=== PATIENT | female | born 1955 | race Caucasian/White ===

== ENCOUNTER 2025-02-08 05:35 | Day surgery (SDC) | payer MEDICARE, OTHER ==
[2025-01-26 11:27] VITALS: BP 131/75
[~2025-02-08] VITALS: Ht 167.6 cm; Wt 114.5 kg
[~2025-02-08 05:35] MED LIST: AMOXICILLIN500 MG PO; FUROSEMIDE20 MG PO; GABAPENTIN100 MG PO; HYDROCODON-ACE1 EA10 PO; IRBESARTAN-HCT1 EACH PO; LACTATED RINGER'S 1,000 ML IV SCH; NEURONTIN300 MG PO; POTASSIUM99 M3 PO; ROPINIROLE HCL2 MG PO
[2025-02-08 06:07] VITALS: BP 136/67
[2025-02-08] MEDS ORDERED: Ropivacaine HCl 20 MG/10 ML AMP ONE (06:07)
[2025-02-08] MEDS ORDERED: SODIUM CHLORIDE 0.9% 500 ML IV ONE (06:07)
[2025-02-08] MEDS ORDERED: MAGNESIUM250 M1 PO (06:09)
[2025-02-08] MEDS ORDERED: Ropivacaine HCl 0.5% 30 ML VIAL ONE ×2 (06:20→09:07)
[2025-02-08] MEDS ORDERED: SODIUM CHLORIDE 0.9% 40 ML IV ONE (06:20)
[2025-02-08] MEDS ORDERED: DEXAMETHASONE SOD PHOS 4 MG/ML VIAL ONE ×2 (06:21→06:22)
[2025-02-08] MEDS ORDERED: dexmedeTOMIDine HCl 200 MCG/2 ML VIAL ONE (06:21)
[2025-02-08] MEDS ORDERED: LIDOCAINE HCL 2% 5 ML SDV ONE (06:21)
[2025-02-08] MEDS ORDERED: propofoL 200 MG/20 ML VIAL ONE ×2 (06:21→07:08)
[2025-02-08] MEDS ORDERED: ondansetron HCL 4 MG/2 ML VIAL ONE (06:21)
[2025-02-08 06:22] LABS: BASOPHILS 0.3 % (0-2); BASOPHILS, ABSOLUTE 0 %; EOSINOPHILS, ABSOLUTE 0.2; HEMATOCRIT 40.6 % (35.0-50.0); LYMPHOCYTES 27.5 % (24-44); LYMPHOCYTES, ABSOLUTE 2.2; MCH 29.5 (27-36); MCHC 34.4 g/dl (30-36); MCV 85.8 fl (81-99); MONOCYTES 7.4 % (0-12); MONOCYTES, ABSOLUTE 0.6; NEUTROPHILS 61.8 % (39-80); NEUTROPHILS, ABSOLUTE 4.9; PLATELET COUNT 258 K/uL (140-440); RBC 4.73 M/ul (4.3-5.7); RDW 14.1 (10.5-15.0)
[2025-02-08 06:36] LABS: ANION GAP 9.6 (7-21); BUN/CREATININE RATIO 21.34 (6.0-28.6); CALCIUM 8.6 mg/dL (8.5-10.1); CREATININE, SERUM 0.89 mg/dL (0.55-1.02); POTASSIUM 3.6 mmol/L (3.5-5.1)
[2025-02-08] MEDS ORDERED: ROPIVACAINE IN 0.9% SOD CHL/PF 545 ML ELS.PMP.HR IRRIGATION SCH (07:00)
[2025-02-08] MEDS ORDERED: PANTOPRAZOLE SODIUM 40 MG TABEC PO SCH (07:00)
[2025-02-08] MEDS ORDERED: ondansetron HCL 4 MG TAB PO SCH (07:00)
[2025-02-08] MEDS ORDERED: IBLOOD GLUCOSE TEST STRIP 1 EA TEST VI PRN ×2 (07:00→08:15)
[2025-02-08] MEDS ORDERED: OXYCODONE HCL 5 MG TAB PO SCH (07:00)
[2025-02-08] MEDS ORDERED: INTRA-ARTICULAR ANALGESIC INJECTION XX SCH (07:00)
[2025-02-08] MEDS ORDERED: GABAPENTIN 600 MG TAB PO SCH (07:00)
[2025-02-08] MEDS ORDERED: LIDOCAINE HCL 1% 5 ML SDV INJ ONE (07:00)
[2025-02-08] MEDS ORDERED: CEFAZOLIN SODIUM 2 GM/20 ML SYR IV SCH ×2 (07:00→15:00)
[2025-02-08] MEDS ORDERED: TRANEXAMIC ACID IN NACL,ISO-OS 1,000 MG/100 ML PIGGYBACK IV SCH ×2 (07:00→10:00)
[2025-02-08] MEDS ORDERED: OXYCODONE HCL 5 MG TAB PO PRN (07:15)
--- NOTE | 2025-02-08 07:22 | NUR ---
VISITED DURING SPIRITUAL CARE ROUNDS. PT NOT AVAILABLE FOR VISIT. TALKED WITH IN ROOM. NO IMMEDIATE NEEDS. SHANK MAKER PROVIDED SUPPORTIVE PRESENCE, HOSPITALITY, PRAYER, FACILITATED INTERACTION WITH THERAPY ANIMAL. EXPRESSED GRATITUDE.
[2025-02-08] MEDS ORDERED: KETAMINE in NS 50 MG/5 ML SYR ONE (07:35)
[2025-02-08] MEDS ORDERED: ePHEDrine sulfate 50 MG/ML AMP ONE (07:49)
[2025-02-08] MEDS ORDERED: ondansetron HCL 4 MG/2 ML VIAL IV PRN (08:15)
[2025-02-08] MEDS ORDERED: fentaNYL citrate 50 MCG/ML SDV IV PRN (08:15)
[2025-02-08] MEDS ORDERED: NALOXONE HCL 0.4 MG SYR IV PRN (08:15)
[2025-02-08] MEDS ORDERED: NAPROXEN500 MG PO (08:31)
[2025-02-08] MEDS ORDERED: CEFUROXIME250 MG PO (08:31)
[2025-02-08] MEDS ORDERED: OXYCODONE HCL5 MG PO (08:31)
[2025-02-08] MEDS ORDERED: ASPIRIN325 MG PO (08:31)
[2025-02-08] MEDS ORDERED: GABAPENTIN100 MG PO (08:32)
[2025-02-08] MEDS ORDERED: ACETAMINOPHEN 1,000 MG/100 ML VIAL ONE (08:59)
[2025-02-08] MEDS ORDERED: ACETAMINOPHEN 1,000 MG/100 ML VIAL IV ONE (09:00)
[2025-02-08] MEDS ORDERED: NAPROXEN 500 MG TAB PO SCH (09:00)
[2025-02-08] MEDS ORDERED: KETOROLAC TROMETHAMINE 15 MG/ML VIAL IV ONE (09:00)
[2025-02-08] MEDS ORDERED: ASPIRIN 325 MG TAB PO SCH (09:00)
[2025-02-08] MEDS ORDERED: HYDROmorphone HCL 1 MG/ML SYR ONE (09:25)
[2025-02-08] MEDS ORDERED: HYDROmorphone HCL 1 MG/ML SYR IV ONE (09:45)
[2025-02-08] MEDS ORDERED: INTRA-ARTICULAR ANALGESIC INJECTION IAARTIC ONE (09:45)
[2025-02-08 09:52] VITALS: BP 135/68
--- NOTE | 2025-02-08 10:30 | NUR ---
0950-PT BACK TO ROOM FROM PACU ON RA. RECEIVED REPORT FROM ALANIS FLORES. PT IS AWAKE. RESP EVEN AND UNLABORED. RATES PAIN 5/10. DENEIS NAUSEA. CRYO CUFF IN PLACE AND RUNNING. ON-Q PUMP SET AT 4. PT TAKING SIPS OF WATER AND EATING PUDDING. NO OTHER NEEDS AT THIS TIME. CALL LIGHT WITHIN REACH. 1000-PAIN MEDICATION GIVEN PER EMAR. FAMILY AT BEDSIDE. CALL LIGTH WITHIN REACH.
[2025-02-08 11:01] VITALS: BP 111/49
[2025-02-08] MEDS ORDERED: GABAPENTIN 100 MG CAP PO SCH (12:00)
[2025-02-08 12:32] VITALS: BP 133/65
--- NOTE | 2025-02-08 12:40 | NUR ---
02/08/25 1240 Jessica Peralta 0846- PT PRESENTS TO PACU, SEMI KNIGHT POSITION, DROWSY AND GRIMACING. O2 AT 6L PER MASK, BREATHING EVEN AND NON LABORED. DRESSING TO RIGHT KNEE, CDI, CMS INTACT TOES FEEL A LITTLE NUMB. ON-Q PUMP AT 4 ML/HR. HEELS FLOATED OFF BED ON TOWEL ROLLS, ABD SOFT, NON DISTENDED. LR INFUSING TO LFA IV. PT C/O 8/10 PAIN. SPINAL LEVEL AROUND THE KNEE. ALL MONITORS IN PLACE. 0852- PT DENIES NAUSEA, MEDICATED WITH FENTANYL 25 MCG FOR 8/10 PAIN AT THIS TIME. 0857- PT DENIES ANY CHANGE IN PAIN, MEDICATED WITH 2ND DOSE OF FENTANYL. 0900- TORADOL GIVEN. XRAY AT BEDSIDE. 0905- TYLENOL IV STARTED AT THIS TIME. PT CONTINUES TO DENY CHANGES IN PAIN. REPORTS PRESSURE INSIDE THE KNEE LIKE SOMETHING IS SITTING ON IT. 0908- PT SATS 100%, MOVED TO ROOM AIR. 0910- MUNIRA WELLS AT BEDSIDE TO BOLUS ROPIVICAINE THROUGH ON-Q PUMP. 10 ML OF ROPIVICAINE 0.5% USED PER MUNIRA. PT REASSURED. CRYO CUFF PLACED TO RIGHT KNEE. 0930- PT REPORTS PAIN DOWN TO 7/10 BUT RPEORTS PAIN IS NOT TOLERABLE. WILL MEDICATED WITH DILAUDID 0.5 MG IV. PT SIPPING ON ICE WATER, TOLERATING WELL. 0945- PT REPORTS PAIN IS DOWN TO 5/10 AT THIS TIME AND MORE TOLERABLE. PLAN TO TAKE PT BACK TO DAY SURGERY TO ALLOW MEDICATION TO CONTINUE TO WORK FOR PAIN. 0950- PT TAKEN BACK TO DAY SURGERY VIA STRETCHER, A&O X4, SIPPING ON ICE WATER. DRESSING IN PLACE, CDI. REPORT TO ALISSA FLORES AT BEDSIDE, FAMILY IN ROOM, CARE OF PT TURNED OVER AT THIS TIME.
--- NOTE | 2025-02-08 12:52 | OR ---
[facility] [address] [place], [place] [address] Signed DATE OF OPERATION: 02/08/2025 SURGEON: Cesar Rudolph MD PREOPERATIVE DIAGNOSIS: Severe degenerative joint disease, right knee. POSTOPERATIVE DIAGNOSIS: Severe degenerative joint disease, right knee. PROCEDURE PERFORMED: Right total knee arthroplasty with Latrell. VERTICAL PUNCH OPERATOR: Rosio Judge PA-C. Rosio was present and critical for all portions of procedure. ANESTHESIA: Spinal. BLOOD LOSS: 175 mL. TOURNIQUET TIME: Zero. IMPLANTS: Shantel Triathlon size 4, 10 mm polyethylene and 32 mm patella. BRIEF HISTORY: Lynne is a 69-year-old female with progressive worsening of medial arthritis. Nonoperative treatment was unsuccessful and she wished to proceed with operative treatment. Risks, benefits, and alternatives were discussed and she was taken to the operating room. DESCRIPTION OF PROCEDURE: After adequate anesthesia, she was placed on the operating room table with a right hip bump. The leg was then prepped and draped in a standard sterile fashion. The knee was approached through a standard anterior midline incision, carried through the skin and subcutaneous tissue. Skin flaps were developed medially and laterally. A midvastus Electronically Signed By: CESAR RUDOLPH MD 02/08/25 1252 PATIENT NAME: LYNNE HENDRICKSON JEROME OPERATIVE REPORT DATE OF : 51 REPORT #: [id number] PHYSICIAN: CESAR RUDOLPH MD PCP: EVIN DE LA TORRE MD REPORT IS CONFIDENTIAL AND NOT TO BE RELEASED WITHOUT AUTHORIZATION [facility] [address] [place], [place] [address] Signed arthrotomy was performed and the infrapatellar fat pad was excised. The MCL was elevated as a sleeve around the posteromedial corner. Anterior horns of the menisci were transected as was the ACL. The navigation computer arrays were then placed in the distal femur and proximal tibia. The alignment of the leg was then registered followed by the fine anatomic points of the knee. The ligamentous poses were then taken. Slight adjustments were made primarily in moving the femur superiorly. Once this was completed, the robot was brought in. The four straight cuts and two angle cuts were made with care taken to protect the patellar tendon and MCL. The bony remnants were removed as were any remaining osteophytes. The posterior osteophytes were removed off the femur. One small loose body was removed. The remaining menisci were removed and the trials were positioned. Knee was taken from 0 to 120 degrees, which represented impingement. The knee was stable throughout and the patella tracked well. The patella was cut sized and drilled for 32 mm patella. The distal femur was drilled and the proximal tibia was finished using the keel punch followed by the four drill holes. The components were obtained. The tibia was impacted into position first followed by the polyethylene. The femur was then impacted until it was well seated. The knee was extended and loaded. The patella was clamped into position until again it was seated flushed. Again, range of motion was found to be good. Ligamentous stability was excellent and the patella tracked well. The knee was then washed out with one bottle of Surgiphor followed by normal saline. The periarticular soft tissues were injected with 100 mL of ropivacaine and Toradol mixture. The On-Q pain pump was percutaneously placed into the adductor canal from the suprapatellar pouch. The arthrotomy was then closed using a combination of #2 FiberWire and #2 Stratafix, subcutaneous tissue with 0 Stratafix and the skin with 3-0 Stratafix. The wound was sealed with LiquiBand and Steri-Strips and dressed with an Acticoat-7 dressing, ABD, and Jason wrap. She tolerated the procedure well. All sponge, needle, and instrument counts were correct. Cesar Rudolph MD BA/MODL /[id number] Electronically Signed By: CESAR RUDOLPH MD 02/08/25 1252 PATIENT NAME: LYNNE HENDRICKSON OPERATIVE REPORT DATE OF : 51 REPORT #: [id number] PHYSICIAN: CESAR RUDOLPH MD PCP: EVIN DE LA TORRE MD REPORT IS CONFIDENTIAL AND NOT TO BE RELEASED WITHOUT AUTHORIZATION [address] [place] [address] Signed Copies: ~ Electronically Signed By: CESAR RUDOLPH MD 02/08/25 1252 PATIENT NAME: LYNNE HENDRICKSON JEROME OPERATIVE REPORT DATE OF : 51 REPORT #: [id number] PHYSICIAN: CESAR RUDOLPH MD PCP: EVIN DE LA TORRE MD REPORT IS CONFIDENTIAL AND NOT TO BE RELEASED WITHOUT AUTHORIZATION
--- NOTE | 2025-02-08 15:01 | NUR ---
MELINDA 0907-PT BACK TO ROOM FOR PACU ON RA. RECEIVED REPORT FROM ALANIS FLORES. PT IS AWAKE. RESP EVEN AND UNLABORED. RATES PAIN 5/10. DENIES NAUSEA. CRYO CUFF IN PLACE AND RUNNING. ON-Q PUMP SET AT 4. PT DRINKING WATER AND EATING PUDDING. FAMILY AT BEDSIDE. MELINDA 1000-PAIN MEDICATION GIVEN PER EMAR. NO OTHER NEEDS AT THIS TIME. CALL LIGHT WITHIN REACH.
--- NOTE | 2025-02-08 15:20 | NUR ---
LE 1100-PT LALYING IN BED. RESP EVEN AND UNLABORED. RATES PAIN 2/10. CRYO CUFF IN PLACE AND RUNNING. ON-Q PUMP SET AT 4. LUNCH ORDER. NO OTHER NEEDS AT THIS TIME. FAMILY IN ROOM. CALL LIGHT WITHIN REACH.
--- NOTE | 2025-02-08 15:52 | NUR ---
LE 1200-PHYSICAL THERAPY IN ROOM WITH PT. LE 1205-PT AMBULATES WITH WALKER AND PHYICAL THERAPIST TO RESTROOM. PT VOIDS 200ML. LE 1230-PT BACK TO ROOM FROM PHYSICAL THERAPY.
--- NOTE | 2025-02-08 15:54 | NUR ---
MELINDA 1233-PT SITTING AT BEDSIDE. RESP EVEN AND UNLABORED. RATES PAIN 2/10. PT IS ON-Q PUMP SET AT 4. PT READY TO GO HOME. PT WILL GET DRESSED. FAMILY IN ROOM TO HELP.
--- NOTE | 2025-02-08 15:56 | NUR ---
LE 1300-WENT OVER DISCHARGE INSTRUCTIONS WITH PT AND FAMILY. WENT OVER POSTOP MEDICATIONS. ALL QUESTIONS ANSWERED. LE 1305-PT ABMULATES WITH WALKER TO WHEELCHAIR. RIDE PROVIDED TO FRONT OF HOSPITAL WHERE FAMILY WAS WAITING WITH THE CAR.
[2025-02-08] MEDS ORDERED: SENNOSIDES 1 TAB PO SCH (21:00)
[2025-02-09] MEDS ORDERED: cefuroxime axetiL 250 MG TAB PO SCH (09:00)
== END 2025-02-08 13:05 | disposition home or self-care (01) ==
LOC: DS 05:35
PROVIDERS: Nurse Anesthetist, Certified Registered; ATTEND Specialist
PROC: 0SRC0JA Replacement of Right Knee Joint with Synthetic Substitute, Uncemented, Open Approach (ICD-10-PCS; principal; 2025-02-08 07:00)
DX: M17.11 Unilateral primary osteoarthritis, right knee (principal); G89.18 Other acute postprocedural pain; I10 Essential (primary) hypertension; Z79.899 Other long term (current) drug therapy; Z88.8 Allergy status to other drugs, medicaments and biological substances
CPT/HCPCS: 01400; 36415; 64447; 64450; 64454; 73560; 76942; 80048; 85025; 97161; 97530; A9270; C1713; C1776; J0131; J0690; J1100; J1171; J1885; J2003; J2405; J2704; J2795; J3010; J3490; J7040; J7121; J7999